=== PATIENT | male | born 1995 | race Caucasian/White ===

== ENCOUNTER 2017-08-22 13:06 | Emergency (ER) | payer OTHER ==
--- NOTE | 2017-08-22 16:25 | XRay Report ---
FINAL REPORT PROCEDURE: XR SPINE LUMBOSACRAL 2-3V TECHNIQUE: Two view lumbar spine HISTORY: pain COMPARISON: No prior studies are available for comparison. FINDINGS: Moderate lumbar lordosis. Mild to moderate degenerative changes with small anterior osteophytes. No definite evidence of acute fracture. If symptoms and or concern persists recommend CT scan. IMPRESSION: No acute fracture seen
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
[2017-08-22] MEDS ORDERED: MOTRIN PO ONE (19:26)
[2017-08-22 23:12] VITALS: BP 150/99
== END 2017-08-22 20:19 | disposition home or self-care (01) ==
LOC: EDBD → ED 13:06
DX: S39.012A Strain of muscle, fascia and tendon of lower back, initial encounter (principal); V49.49XA Driver injured in collision with other motor vehicles in traffic accident, initial encounter; Y93.89 Activity, other specified; Y92.89 Other specified places as the place of occurrence of the external cause; Y99.8 Other external cause status
CPT/HCPCS: 72100; 99283